=== PATIENT | male | born 1955 | race Caucasian/White ===

== ENCOUNTER 2018-01-15 22:28 | Inpatient (IN) | payer OTHER ==
[~2018-01-15] VITALS: Ht 182.9 cm; Wt 84.8 kg
[~2018-01-15 22:28] MED LIST: CIPROFLOXACIN500 M2 ORAL; FLOMAX0.4 MG ORAL; KEFLEX500 MG ORAL
[2018-01-15 22:49] VITALS: BP 133/83
--- NOTE | 2018-01-15 22:59 | Emergency Room Report ---
History of Present Illness General Chief Complaint: Multiple Trauma/Fall Source: Patient, Family Member Present Illness HPI Is a 62-year-old male with no cerumen past medical history. He presents with a left hip pain. He was walking down the stairs slipped and fell directly into his left hip. Since then has a hard time bearing weight. Pain to the left hip and thigh area. No loss of consciousness. No head trauma. Pain is 9 out of 10. Worse with movement and palpation. Allergies: Coded Allergies: No Known Allergies (Unverified , 11/21/13) Patient History Past Medical History: see triage record, old chart reviewed Past Surgical History: other Pertinent Family History: none Social History: Denies: smoking Immunizations: other Reviewed Nursing Documentation: PMH: Agreed; PSxH: Agreed Review of Systems Eye: Denies: eye pain, blurred vision ENT: Denies: ear pain, nose congestion, throat swelling Respiratory: Denies: cough, shortness of breath Cardiovascular: Denies: chest pain, palpitations Gastrointestinal: Denies: abdominal pain, diarrhea, nausea, vomiting Musculoskeletal: Reports: joint pain, muscle pain; Denies: back pain Skin: Denies: rash Neurological: Denies: headache, numbness Endocrine: Denies: increased thirst, increased urine Hematologic/Lymphatic: Denies: easy bruising All Other Systems: negative except mentioned in HPI Physical Exam Vital Signs Date Time Temp Pulse Resp B/P (MAP) Pulse Ox O2 Delivery O2 Flow Rate FiO2 01/15/18 22:31 98.3 85 18 124/72 95 Room Air 98.2 vitals normal Sp02 EP Interpretation: reviewed, normal General Appearance: well appearing, no apparent distress, alert Head: normocephalic, atraumatic Eyes: bilateral eye PERRL, bilateral eye EOMI ENT: hearing grossly normal, normal pharynx Neck: full range of motion, supple, no meningismus Respiratory: chest non-tender, lungs clear, normal breath sounds Cardiovascular #1: regular rate, rhythm, no murmur Gastrointestinal: normal bowel sounds, non tender, no mass, no organomegaly, no bruit, non-distended Musculoskeletal: back normal, tender - Over left hip/thigh. Psychiatric: mood/affect normal Skin: warm/dry Medical Decision Making Diagnostic Impression: Primary Impression: Fracture of femoral neck, left, closed Qualified Codes: S72.002A - Fracture of unspecified part of neck of left femur , initial encounter for closed fracture Additional Impression: UTI (urinary tract infection) Qualified Codes: N30.00 - Acute cystitis without hematuria ER Course Pt presents with a fall with a femoral neck fracture. We'll admit for orthopedic consult. I contacted Dr. Sparks for admission and Dr. Pabon for orthepedic consultation. Chest X-Ray Diagnostic Results Chest X-Ray Diagnostic Results : Chest X-Ray Ordered: Yes # of Views/Limited/Complete: 1 View Indication: Other - Pre Op EP Interpretation: Yes Interpretation: no consolidation, no effusion, no pneumothorax, no acute cardiopulmonary disease Impression: No acute disease Electronically Signed by: Carl Rosario MD Other X-Ray Diagnostic Results Other X-Ray Diagnostic Results : X-Ray ordered: Left hip xrays # of Views/Limited Vs Complete: 2 View Indication: Pain EP Interpretation: Yes Interpretation: no dislocation, no soft tissue swelling, other - femoral neck frx Impression: Other - femoral neck frx CT/MRI/US Diagnostic Results CT/MRI/US Diagnostic Results : Imaging Test Ordered: CT hip Impression Read by radiologist. Left subcapital frx of femur Last Vital Signs Date Time Temp Pulse Resp B/P (MAP) Pulse Ox O2 Delivery O2 Flow Rate FiO2 01/15/18 22:56 98.3 01/15/18 22:49 88 15 133/83 96 Room Air Status: improved Disposition: ADMITTED INPATIENT Condition: Serious CARL ROSARIO M.D. Jan 15, 2018 22:59
[2018-01-15] MEDS ORDERED: Norco 5mg/325mg tab ORAL ONE (23:00)
[2018-01-15] MEDS ORDERED: HYDROmorphone 1mg/ml Carpuject IVP ONE ×2 (23:15→23:30)
[2018-01-15 23:49] LABS: BASOPHILS % (AUTO) 1.2 % (0.0-2.0); EOSINOPHILS % (AUTO) 0.5 % (0.0-3.0); HEMATOCRIT 40.1 % (42.0-52.0); HEMOGLOBIN 14.2 G/DL (14.2-18.0); LYMPHOCYTES % (AUTO) 14.7 % (20.0-45.0); MEAN CORPUSCULAR VOLUME 88 FL (80-99); MONOCYTES % (AUTO) 7.9 % (1.0-10.0); NEUTROPHILS % (AUTO) 75.7 % (45.0-75.0); PLATELET COUNT 292 K/UL (150-450); RED BLOOD COUNT 4.56 M/UL (4.70-6.10); RED CELL DISTRIBUTION WIDTH 10.3 % (11.6-14.8); WHITE BLOOD COUNT 9.2 K/UL (4.8-10.8)
[2018-01-15 23:52] LABS: ANION GAP 7 mmol/L (5-15); BLOOD UREA NITROGEN 23 mg/dL (7-18); CALCIUM 9.6 MG/DL (8.5-10.1); CARBON DIOXIDE 28 MMOL/L (21-32); CHLORIDE 104 MMOL/L (98-107); CREATININE 1.2 MG/DL (0.55-1.30); POTASSIUM 4.1 MMOL/L (3.5-5.1); SODIUM 139 MMOL/L (136-145)
[2018-01-15 23:54] LABS: INR 0.9 (0.9-1.1)
[2018-01-16] VITALS (8 sets, daily range): BP systolic 107–161; BP diastolic 67–91
[2018-01-16 00:47] LABS: BILIRUBIN, URINE NEGATIVE (NEGATIVE); COLOR,URINE PALE YELLOW; GLUCOSE, URINE (UA) NEGATIVE (NEGATIVE); KETONES,URINE 1+ (NEGATIVE); LEUKOCYTE ESTERASE ,URINE 3+ (NEGATIVE); NITRITE,URINE NEGATIVE (NEGATIVE); PH,URINE 6 (4.5-8.0); PROTEIN,URINE 2+ (NEGATIVE); UROBILINOGEN,URINE NORMAL MG/DL (0.0-1.0)
[2018-01-16 00:49] LABS: APPEARANCE,URINE CLOUDY
[2018-01-16] MEDS ORDERED: cefTRIAXone 1 GM in NS 55 ML IVPB ONE (01:00)
[2018-01-16] MEDS ORDERED: Morphine Sulfate 2mg/ml Inj IVP PRN (01:45)
[2018-01-16] MEDS: D5 1/2NS 1,000 ML IV SCH ×2 (02:17→15:53)
[2018-01-16 08:39] LABS: BASOPHILS % (AUTO) 0.8 % (0.0-2.0); EOSINOPHILS % (AUTO) 0.9 % (0.0-3.0); HEMATOCRIT 37.1 % (42.0-52.0); HEMOGLOBIN 12.8 G/DL (14.2-18.0); LYMPHOCYTES % (AUTO) 19.2 % (20.0-45.0); MEAN CORPUSCULAR VOLUME 90 FL (80-99); MONOCYTES % (AUTO) 13.3 % (1.0-10.0); NEUTROPHILS % (AUTO) 65.9 % (45.0-75.0); PLATELET COUNT 232 K/UL (150-450); WHITE BLOOD COUNT 8.8 K/UL (4.8-10.8)
[2018-01-16 08:57] LABS: ANION GAP 8 mmol/L (5-15); BLOOD UREA NITROGEN 19 mg/dL (7-18); CALCIUM 8.6 MG/DL (8.5-10.1); CARBON DIOXIDE 27 MMOL/L (21-32); CHLORIDE 105 MMOL/L (98-107); POTASSIUM 3.8 MMOL/L (3.5-5.1); SODIUM 139 MMOL/L (136-145)
[2018-01-16] MEDS: Heparin 5000 units/ml inj SUBQ SCH ×2 (09:00→18:31)
[2018-01-16] MEDS ORDERED: D5 1/2NS 1000ml IV ONE (09:48)
--- NOTE | 2018-01-16 13:34 | Consultation ---
History of Present Illness General Date patient seen: Jan 16, 2018 Chief Complaint: Multiple Trauma/Fall Present Illness HPI 62 y/o M with hx BPH presents to ED On 01/15 with Lef hip pain after falling walking down stairs and landing on his left hip. No head trauma. Pain is 9/10 and worse with movement and palpation. ID is consulted for pyuria and concern for UTI. Afebrile, no leukocytosis. Allergies: Coded Allergies: No Known Allergies (Unverified , 11/21/13) Medication History Scheduled Cephalexin* (Keflex*), 500 MG ORAL TID Ciprofloxacin Hcl* (Ciprofloxacin Hcl*), 500 MG ORAL Q12H Tamsulosin HCl (Flomax), 0.4 MG ORAL DAILY, (Reported) Patient History Healthcare decision maker Resuscitation status Advanced Directive on File Patient History Narrative Pmhx: as above Shx: reviewed Fhx: non contributory Physical Exam Physical Exam Narrative General Appearance: well appearing, no apparent distress, alert Head: normocephalic, atraumatic Eyes: bilateral eye PERRL, bilateral eye EOMI ENT: hearing grossly normal, normal pharynx Neck: full range of motion, supple, no meningismus Respiratory: chest non-tender, lungs clear, normal breath sounds Cardiovascular : regular rate, rhythm, no murmur Gastrointestinal: normal bowel sounds, non tender, no mass, no organomegaly, no bruit, non-distended Musculoskeletal: back normal, tender - Over left hip/thigh. Skin: warm/dry Last 24 Hour Vital Signs Date Time Temp Pulse Resp B/P (MAP) Pulse Ox O2 Delivery O2 Flow Rate FiO2 01/16/18 12:00 98.6 65 18 161/91 (114) 97 98.6 01/16/18 09:00 Room Air 01/16/18 08:00 97.7 62 18 125/77 (93) 96 97.7 01/16/18 04:27 98.1 57 18 112/68 (83) 97 98.1 01/16/18 02:11 Room Air 01/16/18 01:45 98.1 81 18 115/70 (85) 96 98.1 01/16/18 01:21 98.3 88 15 133/83 96 Room Air 98.3 01/16/18 01:21 71 16 107/67 100 Room Air 01/16/18 00:09 98.3 01/16/18 00:08 98.3 01/16/18 00:08 98.3 01/15/18 23:35 98.3 01/15/18 23:14 98.3 01/15/18 22:56 98.3 01/15/18 22:49 88 15 133/83 96 Room Air 01/15/18 22:31 98.3 85 18 124/72 95 Room Air 98.2 Intake and Output 01/15/18 01/16/18 19:00 07:00 Intake Total 1240 ml Output Total 650 ml Balance 590 ml Intake IV Total 1240 ml Output Urine Total 650 ml # Voids 3 Laboratory Tests Test 01/15/18 23:00 01/16/18 07:50 White Blood Count 9.2 K/UL (4.8-10.8) 8.8 K/UL (4.8-10.8) Red Blood Count 4.56 M/UL (4.70-6.10) L 4.10 M/UL (4.70-6.10) L Hemoglobin 14.2 G/DL (14.2-18.0) 12.8 G/DL (14.2-18.0) L Hematocrit 40.1 % (42.0-52.0) L 37.1 % (42.0-52.0) L Mean Corpuscular Volume 88 FL (80-99) 90 FL (80-99) Mean Corpuscular Hemoglobin 31.2 PG (27.0-31.0) H 31.2 PG (27.0-31.0) H Mean Corpuscular Hemoglobin Concent 35.6 G/DL (32.0-36.0) 34.5 G/DL (32.0-36.0) Red Cell Distribution Width 10.3 % (11.6-14.8) L 11.0 % (11.6-14.8) L Platelet Count 292 K/UL (150-450) 232 K/UL (150-450) Mean Platelet Volume 6.2 FL (6.5-10.1) L 6.2 FL (6.5-10.1) L Neutrophils (%) (Auto) 75.7 % (45.0-75.0) H 65.9 % (45.0-75.0) Lymphocytes (%) (Auto) 14.7 % (20.0-45.0) L 19.2 % (20.0-45.0) L Monocytes (%) (Auto) 7.9 % (1.0-10.0) 13.3 % (1.0-10.0) H Eosinophils (%) (Auto) 0.5 % (0.0-3.0) 0.9 % (0.0-3.0) Basophils (%) (Auto) 1.2 % (0.0-2.0) 0.8 % (0.0-2.0) Prothrombin Time 9.9 SEC (9.30-11.50) 10.2 SEC (9.30-11.50) Prothromb Time International Ratio 0.9 (0.9-1.1) 1.0 (0.9-1.1) Activated Partial Thromboplast Time 23 SEC (23-33) 24 SEC (23-33) Sodium Level 139 MMOL/L (136-145) 139 MMOL/L (136-145) Potassium Level 4.1 MMOL/L (3.5-5.1) 3.8 MMOL/L (3.5-5.1) Chloride Level 104 MMOL/L (98-107) 105 MMOL/L (98-107) Carbon Dioxide Level 28 MMOL/L (21-32) 27 MMOL/L (21-32) Anion Gap 7 mmol/L (5-15) 8 mmol/L (5-15) Blood Urea Nitrogen 23 mg/dL (7-18) H 19 mg/dL (7-18) H Creatinine 1.2 MG/DL (0.55-1.30) 1.0 MG/DL (0.55-1.30) Estimat Glomerular Filtration Rate > 60 mL/min (>60) > 60 mL/min (>60) Glucose Level 117 MG/DL (74-106) H 94 MG/DL (74-106) Calcium Level 9.6 MG/DL (8.5-10.1) 8.6 MG/DL (8.5-10.1) Height (Feet): 6 Height (Inches): 0.00 Weight (Pounds): 176 Medications Current Medications Medications (Trade) Dose Ordered Sig/Aubrey Route PRN Reason Start Time Stop Time Status Last Admin Dose Admin Dextrose/Sodium Chloride 1,000 ml @ 60 mls/hr [id number] IV 01/16/18 01:45 02/15/18 01:44 01/16/18 02:17 Heparin Sodium (Porcine) (Heparin 5000 units/ml) 5,000 units BID SUBQ 01/16/18 09:00 02/15/18 08:59 Morphine Sulfate (Morphine Sulfate) 2 mg Q4H PRN IVP For Pain 01/16/18 01:45 01/23/18 01:44 Assessment/Plan Assessment/Plan Abx: Ceftriaxone x1 01/16 Assessment: Left hip s/p fall- r/o fracture Afebrile, no leukocytosis UTI (dysuria)- r/o obstruction/stone -u/a wbc Tnct, nit neg, leuk +3; ucx p -recurrent UTI- 3 courses of Cipro x10 d since August; last one was recently and urine cx grew P.mirabilis per patient L ankle lateral malleolus swelling/pain- r/o fracture BPH Plan: -Start empiric CEfepime pending urine culture -Renal US -Xray L ankle -f/u cx -Monitor CBC/CMP, temperatures -f/u Xray and CT L hip -aspiration precautions -pain control Thank you for this consultation. Will continue to follow along with you. Discussed with OSEAS. Alyssa Braun M.D. Jan 16, 2018 13:34
--- NOTE | 2018-01-16 14:30 | History and Physical Report ---
DATE OF ADMISSION: 01/15/2018 TIME: 11 a.m. CONSULTANTS: 1. Tanvi Lemus M.D. 2. Yon Davis M.D. 3. Sergey Pabon M.D. CHIEF COMPLAINT: Left hip fracture. BRIEF HISTORY: This is a 62-year-old male, who lives at home, apparently tripped and fell over his left hip, sustaining a lot of pain, came to [place], diagnosed with left hip fracture and admitted to medical floor for further treatment. Currently, calm in bed, feeling better with pain medications. No complaints, otherwise. REVIEW OF SYSTEMS: No chest pain. No shortness of breath. No nausea, vomiting, or diarrhea. PAST MEDICAL HISTORY: BPH. PAST SURGICAL HISTORY: Prostate surgery. MEDICATIONS: Include heparin, morphine, ceftriaxone, hydromorphone, and Zofran. ALLERGIES: Denies. SOCIAL HISTORY: No smoking. No alcohol. No intravenous drug abuse. FAMILY HISTORY: Noncontributory. PHYSICAL EXAMINATION: GENERAL: Calm in bed, oriented x3, in no acute distress. VITAL SIGNS: Temperature 97, pulse 62, respirations 18, and blood pressure 125/77. CARDIOVASCULAR: No murmur. LUNGS: Distant and clear. ABDOMEN: Bowel sounds positive. Soft, nontender, and nondistended. EXTREMITIES: Showed no cyanosis, clubbing, or edema. NEUROLOGIC: The patient moves all extremities, slightly weak bilaterally. Slightly tender left hip. LABORATORY DATA: Laboratories at this time show hemoglobin 12.8, otherwise CBC is normal. BMP shows BUN 19, otherwise BMP is normal. INR is 1.0. Urinalysis show 3+ leukocyte esterase. ASSESSMENT: 1. Left hip fracture. 2. BPH. 3. UTI. PLAN: 1. Continue premeds. 2. Pain control. 3. Dietary followup. 4. Orthopedics followup. 5. Cardiology to clear the patient for possible surgery. 6. Antibiotics per Infectious Disease Dr. Pérez. 7. We will continue to follow this patient medically. 8. CBC and BMP in the morning. Mo Sparks D.O. DR: MARIA LUISA JOB#: [id number] CC:
[2018-01-16] MEDS: Cefepime HCl 1 GM in D5W 55 ML IVPB SCH (16:38)
--- NOTE | 2018-01-16 17:36 | Cardiology Progress Note ---
Assessment/Plan Assessment/Plan The patient is seen and examined, full consult note will be dictated. Objective Last 24 Hour Vital Signs Date Time Temp Pulse Resp B/P (MAP) Pulse Ox O2 Delivery O2 Flow Rate FiO2 01/16/18 15:46 97.7 62 18 133/86 (102) 98 97.7 01/16/18 13:32 70 130/87 (101) 01/16/18 12:00 98.6 65 18 161/91 (114) 97 98.6 01/16/18 09:00 Room Air 01/16/18 08:00 97.7 62 18 125/77 (93) 96 97.7 01/16/18 04:27 98.1 57 18 112/68 (83) 97 98.1 01/16/18 02:11 Room Air 01/16/18 01:45 98.1 81 18 115/70 (85) 96 98.1 01/16/18 01:21 98.3 88 15 133/83 96 Room Air 98.3 01/16/18 01:21 71 16 107/67 100 Room Air 01/16/18 00:09 98.3 01/16/18 00:08 98.3 01/16/18 00:08 98.3 01/15/18 23:35 98.3 01/15/18 23:14 98.3 01/15/18 22:56 98.3 01/15/18 22:49 88 15 133/83 96 Room Air 01/15/18 22:31 98.3 85 18 124/72 95 Room Air 98.2 Intake and Output 01/15/18 01/16/18 19:00 07:00 Intake Total 1240 ml Output Total 650 ml Balance 590 ml Intake IV Total 1240 ml Output Urine Total 650 ml # Voids 3 Laboratory Tests Test 01/15/18 23:00 01/16/18 07:50 White Blood Count 9.2 K/UL (4.8-10.8) 8.8 K/UL (4.8-10.8) Red Blood Count 4.56 M/UL (4.70-6.10) L 4.10 M/UL (4.70-6.10) L Hemoglobin 14.2 G/DL (14.2-18.0) 12.8 G/DL (14.2-18.0) L Hematocrit 40.1 % (42.0-52.0) L 37.1 % (42.0-52.0) L Mean Corpuscular Volume 88 FL (80-99) 90 FL (80-99) Mean Corpuscular Hemoglobin 31.2 PG (27.0-31.0) H 31.2 PG (27.0-31.0) H Mean Corpuscular Hemoglobin Concent 35.6 G/DL (32.0-36.0) 34.5 G/DL (32.0-36.0) Red Cell Distribution Width 10.3 % (11.6-14.8) L 11.0 % (11.6-14.8) L Platelet Count 292 K/UL (150-450) 232 K/UL (150-450) Mean Platelet Volume 6.2 FL (6.5-10.1) L 6.2 FL (6.5-10.1) L Neutrophils (%) (Auto) 75.7 % (45.0-75.0) H 65.9 % (45.0-75.0) Lymphocytes (%) (Auto) 14.7 % (20.0-45.0) L 19.2 % (20.0-45.0) L Monocytes (%) (Auto) 7.9 % (1.0-10.0) 13.3 % (1.0-10.0) H Eosinophils (%) (Auto) 0.5 % (0.0-3.0) 0.9 % (0.0-3.0) Basophils (%) (Auto) 1.2 % (0.0-2.0) 0.8 % (0.0-2.0) Prothrombin Time 9.9 SEC (9.30-11.50) 10.2 SEC (9.30-11.50) Prothromb Time International Ratio 0.9 (0.9-1.1) 1.0 (0.9-1.1) Activated Partial Thromboplast Time 23 SEC (23-33) 24 SEC (23-33) Sodium Level 139 MMOL/L (136-145) 139 MMOL/L (136-145) Potassium Level 4.1 MMOL/L (3.5-5.1) 3.8 MMOL/L (3.5-5.1) Chloride Level 104 MMOL/L (98-107) 105 MMOL/L (98-107) Carbon Dioxide Level 28 MMOL/L (21-32) 27 MMOL/L (21-32) Anion Gap 7 mmol/L (5-15) 8 mmol/L (5-15) Blood Urea Nitrogen 23 mg/dL (7-18) H 19 mg/dL (7-18) H Creatinine 1.2 MG/DL (0.55-1.30) 1.0 MG/DL (0.55-1.30) Estimat Glomerular Filtration Rate > 60 mL/min (>60) > 60 mL/min (>60) Glucose Level 117 MG/DL (74-106) H 94 MG/DL (74-106) Calcium Level 9.6 MG/DL (8.5-10.1) 8.6 MG/DL (8.5-10.1) Yon Davis MD Jan 16, 2018 17:36
[2018-01-16] MEDS: Norco 5mg/325mg tab ORAL PRN (18:56)
[2018-01-17] VITALS (13 sets, daily range): BP systolic 113–147; BP diastolic 74–99
[2018-01-17] MEDS: Morphine Sulfate 2mg/ml Inj IVP PRN (00:07)
[2018-01-17] MEDS: D5 1/2NS 1,000 ML IV SCH ×2 (06:38→06:41)
[2018-01-17 07:18] LABS: BASOPHILS % (AUTO) 0.6 % (0.0-2.0); EOSINOPHILS % (AUTO) 0.1 % (0.0-3.0); HEMATOCRIT 37.6 % (42.0-52.0); HEMOGLOBIN 13.4 G/DL (14.2-18.0); MEAN CORPUSCULAR VOLUME 88 FL (80-99); MONOCYTES % (AUTO) 11.2 % (1.0-10.0); NEUTROPHILS % (AUTO) 77.1 % (45.0-75.0); PLATELET COUNT 227 K/UL (150-450); RED BLOOD COUNT 4.28 M/UL (4.70-6.10); RED CELL DISTRIBUTION WIDTH 10.4 % (11.6-14.8); WHITE BLOOD COUNT 9.3 K/UL (4.8-10.8)
[2018-01-17 07:33] LABS: ANION GAP 5 mmol/L (5-15); BLOOD UREA NITROGEN 10 mg/dL (7-18); CALCIUM 8.9 MG/DL (8.5-10.1); CARBON DIOXIDE 29 MMOL/L (21-32); CHLORIDE 104 MMOL/L (98-107); CREATININE 0.9 MG/DL (0.55-1.30); SODIUM 138 MMOL/L (136-145)
[2018-01-17] MEDS: Heparin 5000 units/ml inj SUBQ SCH ×2 (08:48→17:40)
[2018-01-17] MEDS: Cefepime HCl 1 GM in D5W 55 ML IVPB SCH ×2 (08:52→20:18)
--- NOTE | 2018-01-17 09:16 | Diagnostic Imaging Report ---
Indication: Severe pain in left hip after falling on stairs approximately 2 hours ago Technique: 2 views of the left hip Comparison: none Findings: There is a minimally displaced fracture of the femoral neck. This appears to be comminuted. No dislocations. The joint spaces are preserved Impression: Positive for left femoral neck fracture
--- NOTE | 2018-01-17 09:27 | Diagnostic Imaging Report ---
Indication: Pain in left hip after falling down stairs Technique: No oral or IV contrast, per trauma protocol Spiral acquisitions obtained through the Multiplanar reconstructions were generated. Total dose length prod 448 mGycm. CTDIvol(s) 11 mGy. Radiation dose was minimized using automated exposure control Comparison: Plain radiographs performed one hour earlier Findings: There is a minimally displaced fracture of the left femoral head neck junction. This is comminuted, with slight posterior angulation. No associated pelvic fracture demonstrated. No evidence of significant hip contusion or hematoma. Included pelvic viscera are remarkable for the presence of a calculus within the bladder lumen which measures 9 mm in diameter. Impression: Positive for left femoral subcapital fracture Incidental finding of a 9 mm bladder calculus. This finding was not reported on the [facility] preliminary report; Dr. Sparks notified at the time of interpretation The CT scanner at [facility] is accredited by the [employer] and the scans are performed using protocols designed to limit radiation exposure to as low as reasonably achievable to attain images of sufficient resolution adequate for diagnostic evaluation.
--- NOTE | 2018-01-17 10:11 | Infectious Diseases Prog Note ---
Assessment/Plan Assessment/Plan Abx: Ceftriaxone x1 01/16 Assessment: Left hip s/p fall- with Fx Afebrile, no leukocytosis UTI (dysuria)- r/o obstruction/stone -u/a wbc Tnct, nit neg, leuk +3; ucx GNR -recurrent UTI- 3 courses of Cipro x10 d since August; last one was recently and urine cx grew P.mirabilis per patient L ankle lateral malleolus swelling/pain- r/o fracture BPH Plan: -Continue Cefepime #2 pending urine culture -f/u cx -Monitor CBC/CMP, temperatures -f/u Xray -aspiration precautions -pain control Thank you for this consult we will continue to follow the patient with you. Subjective Allergies: Coded Allergies: No Known Allergies (Unverified , 11/21/13) Subjective Patient remains afebrile Pain controlled Objective Vital Signs Last 24 Hour Vital Signs Date Time Temp Pulse Resp B/P (MAP) Pulse Ox O2 Delivery O2 Flow Rate FiO2 01/17/18 08:00 97.3 69 20 147/80 (102) 98 97.3 01/17/18 04:00 98.2 58 20 116/77 (90) 98 98.2 01/17/18 00:00 98.8 60 20 138/99 (112) 98 98.8 01/16/18 21:00 Room Air 01/16/18 20:00 99.3 69 20 149/91 (110) 98 99.3 01/16/18 15:46 97.7 62 18 133/86 (102) 98 97.7 01/16/18 13:32 70 130/87 (101) 01/16/18 12:00 98.6 65 18 161/91 (114) 97 98.6 Height (Feet): 6 Height (Inches): 0.00 Weight (Pounds): 176 Objective General Appearance: NAD, Alert Head: normocephalic, atraumatic, MMM, EOMI Respiratory: chest non-tender, lungs clear, normal breath sounds Cardiovascular : regular rate, rhythm, no murmur Gastrointestinal: normal bowel sounds, non tender, no mass, no organomegaly, no bruit, non-distended Musculoskeletal: back normal, tender - Over left hip/thigh. Microbiology Date/Time Source Procedure Growth Status 01/15/18 00:02 Urine,Clean Catch Urine Culture - Preliminary Gram Negative Bacillus 1 Resulted Laboratory Tests Test 01/17/18 06:35 White Blood Count 9.3 K/UL (4.8-10.8) Red Blood Count 4.28 M/UL (4.70-6.10) L Hemoglobin 13.4 G/DL (14.2-18.0) L Hematocrit 37.6 % (42.0-52.0) L Mean Corpuscular Volume 88 FL (80-99) Mean Corpuscular Hemoglobin 31.3 PG (27.0-31.0) H Mean Corpuscular Hemoglobin Concent 35.6 G/DL (32.0-36.0) Red Cell Distribution Width 10.4 % (11.6-14.8) L Platelet Count 227 K/UL (150-450) Mean Platelet Volume 5.9 FL (6.5-10.1) L Neutrophils (%) (Auto) 77.1 % (45.0-75.0) H Lymphocytes (%) (Auto) 11.0 % (20.0-45.0) L Monocytes (%) (Auto) 11.2 % (1.0-10.0) H Eosinophils (%) (Auto) 0.1 % (0.0-3.0) Basophils (%) (Auto) 0.6 % (0.0-2.0) Sodium Level 138 MMOL/L (136-145) Potassium Level 4.0 MMOL/L (3.5-5.1) Chloride Level 104 MMOL/L (98-107) Carbon Dioxide Level 29 MMOL/L (21-32) Anion Gap 5 mmol/L (5-15) Blood Urea Nitrogen 10 mg/dL (7-18) Creatinine 0.9 MG/DL (0.55-1.30) Estimat Glomerular Filtration Rate > 60 mL/min (>60) Glucose Level 135 MG/DL (74-106) H Calcium Level 8.9 MG/DL (8.5-10.1) Prostate Specific Antigen 16.36 ng/mL (0.13-4.0) H Free Prostate Specific Antigen Pending Percent Free Prostate Specific Ag Pending Prostate Specific Antigen Total Pending Current Medications Medications (Trade) Dose Ordered Sig/Aubrey Route PRN Reason Start Time Stop Time Status Last Admin Dose Admin Acetaminophen/ Hydrocodone Bitart ([place] 5/325) 1 tab Q6H PRN ORAL Moderate Pain (Pain Scale 4-6) 01/16/18 18:45 01/23/18 18:44 01/16/18 18:56 Cefepime HCl 1 gm/ Dextrose 55 ml @ 110 mls/hr EVERY 12 HOURS IVPB 01/16/18 16:30 01/23/18 16:29 01/17/18 08:52 Dextrose/Sodium Chloride 1,000 ml @ 60 mls/hr [id number] IV 01/16/18 01:45 02/15/18 01:44 01/17/18 06:41 Heparin Sodium (Porcine) (Heparin 5000 units/ml) 5,000 units BID SUBQ 01/16/18 09:00 02/15/18 08:59 01/16/18 18:31 Morphine Sulfate (Morphine Sulfate) 2 mg Q4H PRN IVP Severe Pain (Pain Scale 7-10) 01/16/18 19:00 01/23/18 01:44 01/17/18 00:07 Buck Chinchilla MD Jan 17, 2018 10:11
[2018-01-17] MEDS: Norco 5mg/325mg tab ORAL PRN (10:23)
--- NOTE | 2018-01-17 12:04 | Diagnostic Imaging Report ---
Indication: Severe ankle pain and swelling Technique: 2 views of the left ankle. Per technologist, patient unable to tolerate additional views Comparison: none Findings: There is minimal soft tissue swelling over the lateral malleolus. On AP view, small ossific density projects lateral to the calcaneus. The medial border of this is somewhat irregular. No evidence of acute tibial, fibular, or talar fracture. The joint spaces are preserved. No dislocations Impression: . Small ossific density lateral to the calcaneus on the AP view, probably an accessory ossicle, but irregular medial border indicates that this could represent an avulsion fracture fragment. Correlate with clinical findings No acute bony trauma otherwise
--- NOTE | 2018-01-17 12:13 | Diagnostic Imaging Report ---
Indication: Cough Technique: One view of the chest Comparison: none Findings: Lungs and pleural spaces are clear. Heart size is normal. Azygos lobe and fissure are noted-normal anatomic variant Impression: No acute process
[2018-01-17] MEDS ORDERED: Morphine Sulfate 2mg/ml Inj IVP SCH (12:15)
--- NOTE | 2018-01-17 12:34 | General Progress Note ---
Assessment/Plan Problem List: (1) UTI (urinary tract infection) ICD Codes: N39.0 - Urinary tract infection, site not specified SNOMED: 80660763 (2) Fracture of left hip ICD Codes: S72.002A - Fracture of unspecified part of neck of left femur, initial encounter for closed fracture SNOMED: 147996346 (3) BPH with obstruction/lower urinary tract symptoms ICD Codes: N40.1 - Enlarged prostate with lower urinary tract symptoms SNOMED: 560561129 Status: unchanged Assessment/Plan abx pain control pending sx cbc bmp am Subjective Constitutional: Reports: weakness Allergies: Coded Allergies: No Known Allergies (Unverified , 11/21/13) All Systems: reviewed and negative except above Subjective sl gen pain Objective Last 24 Hour Vital Signs Date Time Temp Pulse Resp B/P (MAP) Pulse Ox O2 Delivery O2 Flow Rate FiO2 01/17/18 12:23 98.4 01/17/18 12:00 98.4 65 20 133/90 (104) 97 98.4 01/17/18 11:22 97.3 01/17/18 10:23 97.3 01/17/18 09:00 Room Air 01/17/18 08:00 97.3 69 20 147/80 (102) 98 97.3 01/17/18 04:00 98.2 58 20 116/77 (90) 98 98.2 01/17/18 00:00 98.8 60 20 138/99 (112) 98 98.8 01/16/18 21:00 Room Air 01/16/18 20:00 99.3 69 20 149/91 (110) 98 99.3 01/16/18 15:46 97.7 62 18 133/86 (102) 98 97.7 01/16/18 13:32 70 130/87 (101) Intake and Output 01/16/18 01/17/18 19:00 07:00 Intake Total 1135 ml 720 ml Output Total 600 ml 800 ml Balance 535 ml -80 ml Intake Oral 480 ml IV Total 655 ml 720 ml Output Urine Total 600 ml 800 ml Laboratory Tests 01/17/18 06:35: White Blood Count 9.3, Red Blood Count 4.28L, Hemoglobin 13.4L, Hematocrit 37.6L , Mean Corpuscular Volume 88, Mean Corpuscular Hemoglobin 31.3H, Mean Corpuscular Hemoglobin Concent 35.6, Red Cell Distribution Width 10.4L, Platelet Count 227, Mean Platelet Volume 5.9L, Neutrophils (%) (Auto) 77.1H, Lymphocytes (%) (Auto) 11.0L, Monocytes (%) (Auto) 11.2H, Eosinophils (%) (Auto ) 0.1, Basophils (%) (Auto) 0.6, Sodium Level 138, Potassium Level 4.0, Chloride Level 104, Carbon Dioxide Level 29, Anion Gap 5, Blood Urea Nitrogen 10 , Creatinine 0.9, Estimat Glomerular Filtration Rate > 60, Glucose Level 135H, Calcium Level 8.9, Prostate Specific Antigen 16.36H, Free Prostate Specific Antigen [Pending], Percent Free Prostate Specific Ag [Pending], Prostate Specific Antigen Total [Pending] Height (Feet): 6 Height (Inches): 0.00 Weight (Pounds): 176 General Appearance: lethargic EENT: normal ENT inspection Neck: normal alignment Cardiovascular: normal peripheral pulses, normal rate, regular rhythm Respiratory/Chest: chest wall non-tender, lungs clear, normal breath sounds Abdomen: normal bowel sounds, non tender, soft Extremities: normal inspection Edema: no edema noted Arm (L), no edema noted Arm (R), no edema noted Leg (L), no edema noted Leg (R), no edema noted Pedal (L), no edema noted Pedal (R), no edema noted Generalized Neurologic: motor weakness Skin: normal pigmentation, warm/dry Mo Sparks DO Jan 17, 2018 12:34
--- NOTE | 2018-01-17 15:16 | Diagnostic Imaging Report ---
Indication: Abnormal renal function tests Technique: Grayscale and duplex images of the kidneys, retroperitoneum, and bladder were obtained. Comparison: none Findings: Right kidney measures 11 cm in length. Left kidney measures 11.6 cm in length. Both kidneys demonstrate normal echogenicity. No hydronephrosis. 15 mm cyst is seen in the upper pole of the left kidney. Echogenic foci in the bilateral renal sinuses are probably artifactual but could represent small nonobstructive calculi.. Normal inferior vena cava. Bladder demonstrates a 11 mm intraluminal stone, also described on recent CT scan. Prevoid bladder volume 360 mL, postvoid bladder volume 162 mL. The prostate is enlarged, volume 93 mL. There is a TURP defect noted Impression: Negative for hydronephrosis Small bilateral renal sinus nonobstructive calculi versus artifact Postvoid bladder volume 162 mL Prostatomegaly. Evidence of prior TURP-correlate with surgical history Incidental finding of left upper pole renal cyst .
[2018-01-17] MEDS ORDERED: Duramorph PF 5mg/10ml amp ONE (16:35)
[2018-01-17] MEDS ORDERED: Bupivacaine 0.5% Inj 30 ml vial INJ ONE (16:36)
[2018-01-17] MEDS ORDERED: Bacitracin 50000 Units Vial ONE (16:36)
[2018-01-17] MEDS ORDERED: NeoSporin Gu Irrig 1ml Amp IRRIG ONE (16:36)
[2018-01-17] MEDS ORDERED: fentaNYL 100 mcg/2 mL IV ONE (16:50)
[2018-01-17] MEDS ORDERED: Midazolam 2mg/2ml Inj ONE (16:50)
[2018-01-17] MEDS ORDERED: Propofol 200mg/20ml IV ONE (16:55)
--- NOTE | 2018-01-17 17:12 | Operative Note - PDOC ---
Operative Note Operative Note Pre-op Diagnosis: left femoral neck fracture Procedure: see op report Post-op Diagnosis: same as pre-op plus Operative Findings: consistent w/pre-op dx studies Anesthesia: regional Specimen: none Complications: none Condition: stable Estimated Blood Loss: none Implant(s) used?: Yes Sergey Pabon MD Jan 17, 2018 17:12
--- NOTE | 2018-01-17 17:12 | Pre-Procedure Note/Attestation ---
Pre-Procedure Note/Attestation Complete Prior to Procedure Planned Procedure: left Procedure Narrative: crpp left femoral neck fracture Indications for Procedure Pre-Operative Diagnosis: left femoral neck fracture Attestation I attest that I discussed the nature of the procedure; its benefits; risks and complications; and alternatives (and the risks and benefits of such alternatives ), prior to the procedure, with the patient (or the patient's legal financial service representative). I attest that, if there was a reasonable possibility of needing a blood transfusion, the patient (or the patient's legal financial service representative) was given the [facility] standardized written summary, pursuant to the Damon Maida Blood Safety Act ([place] Health and Safety Code # 1645, as amended). I attest that I re-evaluated the patient just prior to the surgery and that there has been no change in the patient's H&P, except as documented below: Sergey Pabon MD Jan 17, 2018 17:12
--- NOTE | 2018-01-17 17:26 | Cardiology Report ---
APPROVED REPORT EKG Measurement Heart [id number] Normal sinus rhythm Normal ECG
[2018-01-17] MEDS: D5 1/2NS w/KCl 20mEq 1,000 ML IV SCH ×2 (17:51→21:04)
[2018-01-17] MEDS ORDERED: LR 1000ml 1,000 ML IVLG SCH (18:27)
--- NOTE | 2018-01-17 18:27 | Anethesia Preoperative Eval ---
Anesthesia Pre-op PMH/ROS General Date of Evaluation: Jan 17, 2018 Time of Evaluation: 17:02 Anesthesiologist: Jovita ASA Score: ASA 2 Mallampati Score Class I : Soft palate, uvula, fauces, pillars visible Class II: Soft palate, uvula, fauces visible Class III: Soft palate, base of uvula visible Class IV: Only hard plate visible Mallampati Classification: Class II Surgeon: Cm Diagnosis: L femoral neck Fx Surgical Procedure: Percutaneous pinningh of L fem. neck Fx Anesthesia History: none Family History: no anesthesia problems Allergies: Coded Allergies: No Known Allergies (Unverified , 11/21/13) Medications: see eMAR Past Medical History Cardiovascular: Denies: HTN, CAD, [place], valve dz, arrhythmia, other Pulmonary: Denies: asthma, COPD, EDINSON, other Gastrointestinal/Genitourinary: Reports: GERD - mild, other - BPH recurrent UTI Bladder stone Neurologic/Psychiatric: Denies: dementia, CVA, depression/anxiety, TIA, other Endocrine: Denies: DM, hypothyroidism, steroids, other HEENT: Denies: cataract (L), cataract (R), glaucoma, KASAAN (L), KASAAN (R), other Hematology/Immune: Denies: anemia, DVT, bleeding disorder, other Musculoskeletal/Integumentary: Denies: OA, RA, DJD, DDD, edema, other PMH Narrative: Mechanical fall PSxH Narrative: Appendectomy, TUPR Anesthesia Pre-op Phys. Exam Physician Exam Last Vital Signs Date Time Temp Pulse Resp B/P (MAP) Pulse Ox O2 Delivery O2 Flow Rate FiO2 01/17/18 16:00 98.2 65 20 125/81 (96) 100 98.2 01/17/18 09:00 Room Air Constitutional: NAD Neurologic: CN 2-12 intact Cardiovascular: RRR Respiratory: CTA Gastrointestinal: S/NT/ND Airway Exam Mallampati Score: Class II MO: full Neck: Flexible ROM: full Teeth: intact Dentures: no upper, no lower Anesthesia Pre-op A/P Labs Hematology Test 01/17/18 06:35 White Blood Count 9.3 K/UL (4.8-10.8) Red Blood Count 4.28 M/UL (4.70-6.10) L Hemoglobin 13.4 G/DL (14.2-18.0) L Hematocrit 37.6 % (42.0-52.0) L Mean Corpuscular Volume 88 FL (80-99) Mean Corpuscular Hemoglobin 31.3 PG (27.0-31.0) H Mean Corpuscular Hemoglobin Concent 35.6 G/DL (32.0-36.0) Red Cell Distribution Width 10.4 % (11.6-14.8) L Platelet Count 227 K/UL (150-450) Mean Platelet Volume 5.9 FL (6.5-10.1) L Neutrophils (%) (Auto) 77.1 % (45.0-75.0) H Lymphocytes (%) (Auto) 11.0 % (20.0-45.0) L Monocytes (%) (Auto) 11.2 % (1.0-10.0) H Eosinophils (%) (Auto) 0.1 % (0.0-3.0) Basophils (%) (Auto) 0.6 % (0.0-2.0) Chemistry Test 01/17/18 06:35 Sodium Level 138 MMOL/L (136-145) Potassium Level 4.0 MMOL/L (3.5-5.1) Chloride Level 104 MMOL/L (98-107) Carbon Dioxide Level 29 MMOL/L (21-32) Anion Gap 5 mmol/L (5-15) Blood Urea Nitrogen 10 mg/dL (7-18) Creatinine 0.9 MG/DL (0.55-1.30) Estimat Glomerular Filtration Rate > 60 mL/min (>60) Glucose Level 135 MG/DL (74-106) H Calcium Level 8.9 MG/DL (8.5-10.1) Prostate Specific Antigen 16.36 ng/mL (0.13-4.0) H Free Prostate Specific Antigen Pending Percent Free Prostate Specific Ag Pending Prostate Specific Antigen Total Pending Studies Pre-op Studies: EKG - NSR Risk Assessment & Plan Assessment: ASA 2 Plan: SAB vs GA Status Change Before Surgery: No Pre-Antibiotics Drug: Ancef 2 gr. Given Within 1 Hr of Incision: Yes Time Given: 17:50 Herbie Hussein MD Jan 17, 2018 18:27
[2018-01-17] MEDS ORDERED: DiphenhydrAMINE 50mg/ml Inj IVP PRN (18:30)
[2018-01-17] MEDS ORDERED: Ketorolac 30mg Inj IV PRN (18:30)
[2018-01-17] MEDS ORDERED: fentaNYL 100 mcg/2 mL IV PRN (18:30)
--- NOTE | 2018-01-17 18:52 | Immediate Post-Op Evaluation ---
Immediate Post-Op Evalulation Immediate Post-Op Evalulation Procedure: Percutaneous pinning of L femoral neck Fx. Date of Evaluation: Jan 17, 2018 Time of Evaluation: 18:50 IV Fluids: 800 Blood Products: none Estimated Blood Loss: min Urinary Output: 100 Blood Pressure Systolic: 121 Blood Pressure Diastolic: 77 Pulse Rate: 56 Respiratory Rate: 20 O2 Sat by Pulse Oximetry: 99 Temperature (Fahrenheit): 98.8 Pain Score (1-10): 1 Nausea: No Vomiting: No Complications none Patient Status: awake, patent, none Hydration Status: adequate Herbie Hussein MD Jan 17, 2018 18:52
--- NOTE | 2018-01-17 19:15 | Consultation ---
DATE OF CONSULTATION: 01/16/2018 ORTHOPEDIC CONSULTATION CONSULTING PHYSICIAN: Sergey Pabon M.D. CHIEF COMPLAINT: Left hip pain. HISTORY OF PRESENT ILLNESS: The patient is a pleasant 62-year-old gentleman, who slipped down flight of stairs. He has pain in the left hip, had difficulty weightbearing, brought to the ER, was diagnosed of left femoral neck fracture. Orthopedic consultation was obtained for further care and recommendation. PAST MEDICAL HISTORY: None listed. MEDICATIONS: Reviewed from the intake chart. ALLERGIES: None. SOCIAL HISTORY: The patient is a nonsmoker. FAMILY HISTORY: Noncontributory. PHYSICAL EXAMINATION: GENERAL: The patient is alert and oriented, resting comfortably in the exam bed. VITAL SIGNS: Afebrile. Stable vital signs. EXTREMITIES: Left hip examination shows pain with internal and external rotation. Positive heel strike. Posterior calf is soft. Neurovascular is normal. IMAGING STUDIES: Showed nondisplaced femoral neck fracture with well-maintained joint. ASSESSMENT: Left femoral neck fracture. DISCUSSION: At this point, I recommend to proceed with closed reduction and percutaneous pinning of left hip. We will try to make sure the patient is optimized from medical for surgery on Tuesday. He will be n.p.o. after breakfast in anticipation of with this patient surgery on Tuesday pending medical clearance. Alternatives, nonoperative as well as total hip replacement discussed with the patient. Possible avascular necrosis, failure of hardware, need for future surgery including total hip replacement discussed with the patient. All questions addressed. Sergey Pabon M.D. DR: Mj JOB#: [id number] CC:
--- NOTE | 2018-01-17 19:45 | Consultation ---
DATE OF CONSULTATION: 01/16/2018 CARDIOLOGY CONSULTATION CONSULTING PHYSICIAN: Yon Davis M.D. REFERRING PHYSICIAN: Mo Sparks D.O. REASON FOR CONSULTATION: A preoperative cardiac clearance for possible noncardiac surgery. HISTORY OF PRESENT ILLNESS: The patient is a very unfortunate 62-year-old gentleman with no past medical history except allergic disorder who presents to the hospital with left knee pain following a mechanical fall directly on to the left hip. He had a hard time bearing weight on the lower extremities and came to the hospital for evaluation and management. Initial CT of hip showed left subcapital fracture of femur. The patient was admitted to Medical/Surgical unit for further evaluation and management, possible surgical approach. Cardiology consultation was made at request of Dr. Sparks to perform preoperative cardiac clearance. The patient does not have any history of coronary artery disease, congestive heart failure or cardiac arrhythmias. He denies any risk factors for coronary artery disease. He claims that prior to this event, he was capable of tolerating work load of more than 4 METS, with having no limitations from the cardiac standpoint. PAST MEDICAL HISTORY: Allergic disorder. PAST SURGICAL HISTORY: None. MEDICATIONS: Cephalexin 500 mg three times a day, ciprofloxacin 500 mg twice a day and Flomax 0.4 mg daily. ALLERGIES: No known drug allergies. FAMILY HISTORY: No premature coronary artery disease in first-degree relatives. SOCIAL HISTORY: Denies tobacco, alcohol, or illicit drug use. REVIEW OF SYSTEMS: A 12-system review done essentially negative except what was mentioned in the history of present illness. PHYSICAL EXAMINATION: GENERAL: The patient is a very unfortunate 62-year-old gentleman, in no apparent respiratory distress. Alert and oriented x4. VITAL SIGNS: Blood pressure at the time of arrival to the hospital 124/72, respirations 18, pulse of 85, O2 saturation 95% on room air and temperature 98.3 degrees Fahrenheit. HEENT: Atraumatic and normocephalic. ENT, pupils are equal, round, and reactive to light and accommodation. Extraocular muscles intact. NECK: JVP less than 5 cm. No carotid bruit. Carotid upstrokes 2+ bilaterally. CARDIOVASCULAR: Normal S1 and S2. Regular rate and rhythm. No murmurs, gallops, or rubs. PMI is at fourth intercostal space in the midclavicular line. LUNGS: Clear to auscultation bilaterally. ABDOMEN: Soft, nontender, and nondistended. No hepatosplenomegaly. Positive bowel sounds. EXTREMITIES: No evidence of edema, clubbing, or cyanosis. LABORATORY AND DIAGNOSTIC DATA: Chest x-ray showed no acute cardiopulmonary disease. A 12-lead electrocardiogram not available. WBC 9.3, hemoglobin 14.2, hematocrit 40.1 and platelet count is 292. Sodium is 139, potassium is 4.1, chloride 104, bicarbonate 28, BUN of 23, creatinine 1.2 and glucose is 117. Calcium is 9.6. INR is 0.9. ASSESSMENT AND PLAN: The patient is a very unfortunate 62-year-old gentleman, seen in Cardiology consultation at the request of Dr. Sparks. The patient is asymptomatic from the cardiac standpoint. He tolerates activities more than 4 METS. He does not have any risk factors for coronary artery disease. The patient is cleared for the possible intermediate risk of procedure with the risk of coronary artery events, perioperatively estimated to be less than 1%. I would like to obtain 12-lead electrocardiogram for preoperative purposes. I would like to thank, Dr. Sparks, for the courtesy of this consultation. Yon Davis M.D. DR: LATOYA JOB#: [id number] CC:
--- NOTE | 2018-01-17 20:00 | Operative Note - Dictated ---
DATE OF OPERATION: 01/17/2018 NOTE: "POOR AUDIO QUALITY" PREOPERATIVE DIAGNOSIS: Left femoral neck fracture. POSTOPERATIVE DIAGNOSIS: Left femoral neck fracture. PROCEDURE: Closed reduction and percutaneous pinning, left femoral neck fracture. SURGEON: Sergey Pabon M.D. ANESTHESIA: Spinal. INDICATION FOR PROCEDURE: The patient is a pleasant gentleman, who sustained a mechanical fall. He was diagnosed with left nondisplaced femoral neck fracture. He was indicated for operative fixation. Risks, limitations, expectations, and complications of the procedure were discussed in detail including avascular necrosis, failure of hardware, need for conversion to total hip arthroplasty, risk of anesthesia, medical complications, DVT, PE, and mortality risks. All questions were addressed. DESCRIPTION OF PROCEDURE: After informed consent was obtained, the patient was brought to the operating room. We placed the patient under spinal anesthesia. Kruse catheter was placed. Left hip was prepped and draped in sterile manner. Time-out was performed. A standard lateral skin incision was then made. Three guidewires were placed in inverted-triangle fashion. there was good spread from the anterior to posterior. Once that was done, 7.3 partially threaded cannulated screws were then placed with good fixation. AP and lateral imaging showed that the implants were within the bone the articular surface. The guidewires were removed. The wound was copiously irrigated. Skin was closed with #1 Vicryl suture, 2-0 Vicryl suture, and 3-0 Monocryl sutures. ESTIMATED BLOOD LOSS: None. COMPLICATIONS: None. SPECIMENS: None. IMPLANTS: Include three partially threaded hip screws. Sergey Pabon M.D. DR: Mj JOB#: [id number] CC:
[2018-01-17] MEDS: Tamsulosin 0.4mg cap ORAL SCH (22:39)
[2018-01-18] VITALS: BP 151/87
--- NOTE | 2018-01-18 01:45 | Consultation ---
DATE OF CONSULTATION: 01/17/2018 UROLOGY CONSULTATION CONSULTING PHYSICIAN: Will Love M.D. ATTENDING PHYSICIAN: Dr. Mo Sparks. CHIEF COMPLAINT/HISTORY OF PRESENT ILLNESS: I was asked by Dr. Sparks to evaluate this very pleasant 62-year-old gentleman regarding history of BPH, status post TURP, and a small bladder stone in the setting of imaging for a hip fracture. Briefly, the patient has a history of BPH and underwent TURP at [facility] approximately 3 years ago. He is maintained on Flomax 0.4 mg at baseline. He appears to be doing well after his urologic surgery, but presented to the hospital after tripping and falling over his left hip. Unfortunately, this resulted in a left hip fracture and he was admitted for management of the same. The patient had imaging done revealing a 9 mm stone in the bladder incidentally as a result of workup for his pelvic fracture, he has since had ORIF of the same. PAST MEDICAL HISTORY: 1. BPH. 2. Left hip fracture. PAST SURGICAL HISTORY: 1. TURP approximately 3 years ago. 2. ORIF, left hip fracture during this hospitalization. MEDICATIONS: Please see the chart for current medications administration details. Briefly, the patient is receiving cefepime for antibiotic coverage. He is not receiving Flomax here in the hospital. ALLERGIES: No known drug allergies. SOCIAL HISTORY: Unremarkable for tobacco, alcohol, or drug use. FAMILY HISTORY: Noncontributory. REVIEW OF SYSTEMS: A 14-system review of systems was essentially unremarkable outside was described above. PHYSICAL EXAMINATION: GENERAL: The patient is an older gentleman, awake, alert, oriented x4, pleasant, in no obvious distress. HEENT: NC/AT. EOMI. NECK: Supple. Full range of motion. Oropharynx clear. CHEST: Within normal limits. ABDOMEN: Soft, nontender, and nondistended. EXTREMITIES: Warm and well perfused. No cyanosis, clubbing, or edema. BACK: No CVA tenderness to percussion. NEUROLOGIC: Grossly nonfocal. GENITOURINARY: Reveals a circumcised male phallus with a Kruse catheter in place with clear yellow urine output. There are bilateral descended testes and cord structures. No masses or tenderness to palpation. LABORATORY DATA: White blood cell count 9.3, hematocrit 37.6, and platelets 227,000. PT 10.2, INR 1.0, and PTT 24. Sodium 138, potassium 4.0, chloride 104, bicarbonate 29, BUN 10, creatinine 0.9, glucose 135, and calcium 8.9. PSA 16.4. Urinalysis, specific gravity 1.015, pH 6.0. Dip test notable for 2+ protein, 1+ ketones, 4+ occult blood, and 3+ leukocyte esterase. Microanalysis with 15 to 20 red blood cells per high-power field, too numerous to count white blood cells per high-power field, and moderate bacteria seen. Urine culture with gram-negative bacillus. DIAGNOSTIC IMAGING: Hip CT with left femoral subcapital fracture. There is an incidental finding of a 9 millimeter bladder calculus. ASSESSMENT AND PLAN: In summary, the patient is a 62-year-old gentleman with a history of benign prostatic hypertrophy, status post transurethral resection of the prostate, maintained on Flomax with the same. He also has had apparent previous episodes of urinary tract infection. He presents to the hospital after a trip and fall resulting in a left hip fracture. Imaging for the same revealed an incidental 9 millimeter bladder stone and laboratory data revealed evidence of urinary tract infection again. The patient is receiving cefepime for antibiotic coverage. Physical exam reveals a Kruse catheter in place with clear yellow urine output. I discussed these findings today with the patient at the bedside. We will continue him on cefepime and adjust his antibiotics as culture results warrant. Additionally, I will start him on Flomax 0.4 milligrams by mouth at bedtime per his regular regimen. His catheter can be removed when he is mobile. As far as the bladder stone, it can be addressed as an outpatient with cystoscopy and laser litholapaxy done once he has recovered from his hip fracture. The patient verbalized understanding of the same. Thank you for allowing me to participate in the care of this nice gentleman. Please do not hesitate to contact me for any questions that you may further have regarding his care. I will see him with you as needed. Will Love M.D. DR: MAGDY JOB#: [id number] CC:
[2018-01-18] MEDS: Norco 5mg/325mg tab ORAL PRN ×2 (02:33→11:41)
[2018-01-18 04:00] VITALS: BP 118/73
[2018-01-18 06:38] LABS: BASOPHILS % (AUTO) 0.6 % (0.0-2.0); EOSINOPHILS % (AUTO) 0.3 % (0.0-3.0); HEMATOCRIT 37.3 % (42.0-52.0); HEMOGLOBIN 13.2 G/DL (14.2-18.0); LYMPHOCYTES % (AUTO) 7.4 % (20.0-45.0); MEAN CORPUSCULAR VOLUME 89 FL (80-99); MONOCYTES % (AUTO) 12.3 % (1.0-10.0); NEUTROPHILS % (AUTO) 79.5 % (45.0-75.0); PLATELET COUNT 201 K/UL (150-450); RED BLOOD COUNT 4.17 M/UL (4.70-6.10); RED CELL DISTRIBUTION WIDTH 10.4 % (11.6-14.8); WHITE BLOOD COUNT 11.1 K/UL (4.8-10.8)
[2018-01-18 06:44] LABS: ANION GAP 5 mmol/L (5-15); BLOOD UREA NITROGEN 8 mg/dL (7-18); CARBON DIOXIDE 30 MMOL/L (21-32); CHLORIDE 101 MMOL/L (98-107); SODIUM 136 MMOL/L (136-145)
[2018-01-18 08:00] VITALS: BP 112/66
[2018-01-18] MEDS: Morphine Sulfate 2mg/ml Inj IVP PRN ×3 (08:42→18:06)
[2018-01-18] MEDS: Cefepime HCl 1 GM in D5W 55 ML IVPB SCH ×2 (08:42→21:57)
[2018-01-18] MEDS: Heparin 5000 units/ml inj SUBQ SCH ×2 (08:46→17:12)
--- NOTE | 2018-01-18 09:15 | Diagnostic Imaging Report ---
Indication: Left hip fracture; intraoperative imaging Technique: Intraoperative images Comparison: 01/15/2018 Findings: Intraoperative images document repair of previously demonstrated left hip fracture using 3 surgical nails. Impression: Intraoperative imaging, as described
[2018-01-18 12:00] VITALS: BP 132/80
[2018-01-18] MEDS: D5 1/2NS w/KCl 20mEq 1,000 ML IV SCH (12:28)
--- NOTE | 2018-01-18 13:01 | General Progress Note ---
Assessment/Plan Problem List: (1) UTI (urinary tract infection) ICD Codes: N39.0 - Urinary tract infection, site not specified SNOMED: 47409863 (2) Fracture of left hip ICD Codes: S72.002A - Fracture of unspecified part of neck of left femur, initial encounter for closed fracture SNOMED: 716420861 (3) BPH with obstruction/lower urinary tract symptoms ICD Codes: N40.1 - Enlarged prostate with lower urinary tract symptoms SNOMED: 811978832 Status: stable, progressing Assessment/Plan abx pain control pending sx cbc bmp am dc plan snf Subjective Constitutional: Reports: weakness Allergies: Coded Allergies: No Known Allergies (Unverified , 11/21/13) All Systems: reviewed and negative except above Subjective sl gen pain s/p hip sx Objective Last 24 Hour Vital Signs Date Time Temp Pulse Resp B/P (MAP) Pulse Ox O2 Delivery O2 Flow Rate FiO2 01/18/18 12:00 99.3 85 20 132/80 (97) 98 99.3 01/18/18 08:00 98.8 94 20 112/66 (81) 98 98.8 01/18/18 07:51 Room Air 01/18/18 04:00 99.0 90 20 118/73 (88) 95 99.0 01/18/18 00:00 99.7 74 17 151/87 (108) 97 99.7 01/17/18 21:00 Room Air 01/17/18 20:00 98.0 53 18 135/86 (102) 98 98.0 01/17/18 19:25 97.6 52 16 127/77 100 Nasal Cannula 3 97.6 01/17/18 19:20 52 14 129/76 100 Nasal Cannula 3 01/17/18 19:15 51 15 133/81 100 Nasal Cannula 3 01/17/18 19:00 51 14 130/76 100 Nasal Cannula 3 01/17/18 18:52 209.8 56 20 99 01/17/18 18:50 52 15 121/77 100 Nasal Cannula 3 01/17/18 18:45 50 14 113/83 100 Simple Mask 6 01/17/18 18:39 98.9 53 20 120/74 100 Simple Mask 6 98.9 01/17/18 16:00 98.2 65 20 125/81 (96) 100 98.2 Intake and Output 01/17/18 01/18/18 19:00 07:00 Intake Total 1325 ml 2005 ml Output Total 120 ml 1500 ml Balance 1205 ml 505 ml IV Total 1325 ml 1205 ml Other 800 ml Output Urine Total 100 ml 1500 ml Estimated Blood Loss 20 ml Laboratory Tests 01/18/18 05:30: White Blood Count 11.1H, Red Blood Count 4.17L, Hemoglobin 13.2L, Hematocrit 37.3L, Mean Corpuscular Volume 89, Mean Corpuscular Hemoglobin 31.6H, Mean Corpuscular Hemoglobin Concent 35.4, Red Cell Distribution Width 10.4L, Platelet Count 201, Mean Platelet Volume 5.7L, Neutrophils (%) (Auto) 79.5H, Lymphocytes (%) (Auto) 7.4L, Monocytes (%) (Auto) 12.3H, Eosinophils (%) (Auto) 0.3, Basophils (%) (Auto) 0.6, Sodium Level 136, Potassium Level 4.0, Chloride Level 101, Carbon Dioxide Level 30, Anion Gap 5, Blood Urea Nitrogen 8, Creatinine 1.0, Estimat Glomerular Filtration Rate > 60, Glucose Level 132H, Calcium Level 9.0 Height (Feet): 6 Height (Inches): 0.00 Weight (Pounds): 187 General Appearance: lethargic EENT: normal ENT inspection Neck: normal alignment Cardiovascular: normal peripheral pulses, normal rate, regular rhythm Respiratory/Chest: chest wall non-tender, lungs clear, normal breath sounds Abdomen: normal bowel sounds, non tender, soft Extremities: normal inspection Edema: no edema noted Arm (L), no edema noted Arm (R), no edema noted Leg (L), no edema noted Leg (R), no edema noted Pedal (L), no edema noted Pedal (R), no edema noted Generalized Neurologic: responsive, motor weakness Skin: normal pigmentation, warm/dry Mo Sparks DO Jan 18, 2018 13:01
--- NOTE | 2018-01-18 13:49 | Infectious Diseases Prog Note ---
Assessment/Plan Assessment/Plan Abx: Ceftriaxone x1 01/16 Assessment: Left hip s/p fall- with Fx SP ORIF Afebrile, no leukocytosis UTI (dysuria)- r/o obstruction/stone -u/a wbc Tnct, nit neg, leuk +3; ucx GNR -recurrent UTI- 3 courses of Cipro x10 d since August; last one was recently and urine cx grew P.mirabilis per patient L ankle lateral malleolus swelling/pain- r/o fracture BPH Plan: Ceftriaxone #1/7 Will likely D/C on Levofloxacin -D/C Cefepime #2 -f/u cx -Monitor CBC/CMP, temperatures -f/u Xray -aspiration precautions -pain control - Need f/u with urology as likely has infected stone. Thank you for this consult we will continue to follow the patient with you. Subjective Allergies: Coded Allergies: No Known Allergies (Unverified , 11/21/13) Subjective Patient remains afebrile Pain controlled Left hip Sx last night Objective Vital Signs Last 24 Hour Vital Signs Date Time Temp Pulse Resp B/P (MAP) Pulse Ox O2 Delivery O2 Flow Rate FiO2 01/18/18 12:00 99.3 85 20 132/80 (97) 98 99.3 01/18/18 08:00 98.8 94 20 112/66 (81) 98 98.8 01/18/18 07:51 Room Air 01/18/18 04:00 99.0 90 20 118/73 (88) 95 99.0 01/18/18 00:00 99.7 74 17 151/87 (108) 97 99.7 01/17/18 21:00 Room Air 01/17/18 20:00 98.0 53 18 135/86 (102) 98 98.0 01/17/18 19:25 97.6 52 16 127/77 100 Nasal Cannula 3 97.6 01/17/18 19:20 52 14 129/76 100 Nasal Cannula 3 01/17/18 19:15 51 15 133/81 100 Nasal Cannula 3 01/17/18 19:00 51 14 130/76 100 Nasal Cannula 3 01/17/18 18:52 209.8 56 20 99 01/17/18 18:50 52 15 121/77 100 Nasal Cannula 3 01/17/18 18:45 50 14 113/83 100 Simple Mask 6 01/17/18 18:39 98.9 53 20 120/74 100 Simple Mask 6 98.9 01/17/18 16:00 98.2 65 20 125/81 (96) 100 98.2 Height (Feet): 6 Height (Inches): 0.00 Weight (Pounds): 187 Objective General Appearance: NAD, Laying in bed Head: normocephalic, atraumatic, MMM, EOMI Respiratory: chest non-tender, lungs clear, normal breath sounds Cardiovascular : regular rate, rhythm, no murmur Gastrointestinal: normal bowel sounds, non tender, no mass, no organomegaly, no bruit, non-distended Musculoskeletal: back normal, tender - Over left hip/thigh. Laboratory Tests Test 01/18/18 05:30 White Blood Count 11.1 K/UL (4.8-10.8) H Red Blood Count 4.17 M/UL (4.70-6.10) L Hemoglobin 13.2 G/DL (14.2-18.0) L Hematocrit 37.3 % (42.0-52.0) L Mean Corpuscular Volume 89 FL (80-99) Mean Corpuscular Hemoglobin 31.6 PG (27.0-31.0) H Mean Corpuscular Hemoglobin Concent 35.4 G/DL (32.0-36.0) Red Cell Distribution Width 10.4 % (11.6-14.8) L Platelet Count 201 K/UL (150-450) Mean Platelet Volume 5.7 FL (6.5-10.1) L Neutrophils (%) (Auto) 79.5 % (45.0-75.0) H Lymphocytes (%) (Auto) 7.4 % (20.0-45.0) L Monocytes (%) (Auto) 12.3 % (1.0-10.0) H Eosinophils (%) (Auto) 0.3 % (0.0-3.0) Basophils (%) (Auto) 0.6 % (0.0-2.0) Sodium Level 136 MMOL/L (136-145) Potassium Level 4.0 MMOL/L (3.5-5.1) Chloride Level 101 MMOL/L (98-107) Carbon Dioxide Level 30 MMOL/L (21-32) Anion Gap 5 mmol/L (5-15) Blood Urea Nitrogen 8 mg/dL (7-18) Creatinine 1.0 MG/DL (0.55-1.30) Estimat Glomerular Filtration Rate > 60 mL/min (>60) Glucose Level 132 MG/DL (74-106) H Calcium Level 9.0 MG/DL (8.5-10.1) Current Medications Medications (Trade) Dose Ordered Sig/Aubrey Route PRN Reason Start Time Stop Time Status Last Admin Dose Admin Acetaminophen/ Hydrocodone Bitart ([place] 5/325) 1 tab Q6H PRN ORAL Moderate Pain (Pain Scale 4-6) 01/16/18 18:45 01/23/18 18:44 01/18/18 11:41 Cefepime HCl 1 gm/ Dextrose 55 ml @ 110 mls/hr EVERY 12 HOURS IVPB 01/16/18 16:30 01/23/18 16:29 01/18/18 08:42 Dextrose/ Electrolytes 1,000 ml @ 75 mls/hr [id number] IV 01/17/18 18:00 02/16/18 17:59 01/18/18 12:28 Heparin Sodium (Porcine) (Heparin 5000 units/ml) 5,000 units BID SUBQ 01/16/18 09:00 02/15/18 08:59 01/18/18 08:46 Morphine Sulfate (Morphine Sulfate) 2 mg Q4H PRN IVP Severe Pain (Pain Scale 7-10) 01/16/18 19:00 01/23/18 01:44 01/18/18 08:42 Tamsulosin HCl (Flomax) 0.4 mg BEDTIME ORAL 01/17/18 22:30 02/16/18 22:29 01/17/18 22:39 Buck Chinchilla MD Jan 18, 2018 13:49
[2018-01-18] MEDS ORDERED: cefTRIAXone 1 GM in D5W 55 ML IVPB SCH (15:00)
--- NOTE | 2018-01-18 15:51 | Cardiology Report ---
APPROVED REPORT EKG Measurement Heart [id number] Sinus bradycardia Otherwise normal ECG
[2018-01-18 16:10] VITALS: BP 139/75
[2018-01-18 20:00] VITALS: BP 146/81
[2018-01-18] MEDS: Tamsulosin 0.4mg cap ORAL SCH (20:43)
[2018-01-19] VITALS: BP 112/69
[2018-01-19 04:00] VITALS: BP 125/72
[2018-01-19] MEDS: D5 1/2NS w/KCl 20mEq 1,000 ML IV SCH (04:54)
[2018-01-19] MEDS: Cefepime HCl 1 GM in D5W 55 ML IVPB SCH ×2 (05:00→13:48)
[2018-01-19 07:36] LABS: BASOPHILS % (AUTO) 0.6 % (0.0-2.0); EOSINOPHILS % (AUTO) 2.6 % (0.0-3.0); HEMATOCRIT 36.7 % (42.0-52.0); LYMPHOCYTES % (AUTO) 9.5 % (20.0-45.0); MEAN CORPUSCULAR VOLUME 88 FL (80-99); MONOCYTES % (AUTO) 12.1 % (1.0-10.0); NEUTROPHILS % (AUTO) 75.2 % (45.0-75.0); PLATELET COUNT 194 K/UL (150-450); RED BLOOD COUNT 4.18 M/UL (4.70-6.10); RED CELL DISTRIBUTION WIDTH 10.1 % (11.6-14.8)
[2018-01-19 07:49] LABS: ANION GAP 8 mmol/L (5-15); BLOOD UREA NITROGEN 9 mg/dL (7-18); CALCIUM 9.1 MG/DL (8.5-10.1); CARBON DIOXIDE 27 MMOL/L (21-32); CHLORIDE 105 MMOL/L (98-107); CREATININE 0.8 MG/DL (0.55-1.30); POTASSIUM 3.6 MMOL/L (3.5-5.1); SODIUM 140 MMOL/L (136-145)
[2018-01-19 08:00] VITALS: BP 124/74
--- NOTE | 2018-01-19 08:08 | Infectious Diseases Prog Note ---
Assessment/Plan Assessment/Plan Abx: Ceftriaxone x1 01/16 Assessment: Fever - Likely Post Op vs Urinary source as also had mild PO leukocytosis - Now afebrile Leukocytosis - resolved Left hip s/p fall- with Fx SP ORIF Afebrile and no leukocytosis initially UTI (dysuria)- r/o obstruction/stone -u/a wbc Tnct, nit neg, leuk +3; ucx GNR -recurrent UTI- 3 courses of Cipro x10 d since August; last one was recently and urine cx grew P.mirabilis per patient L ankle lateral malleolus swelling/pain- r/o fracture BPH Plan: Cefepime #4/ - Will likely D/C on Levofloxacin -f/u cx -Monitor CBC/CMP, temperatures -f/u Xray -aspiration precautions -pain control - Need f/u with urology as likely has infected stone. Thank you for this consult we will continue to follow the patient with you. Subjective Allergies: Coded Allergies: No Known Allergies (Unverified , 11/21/13) Subjective Had fever last night - Now resolved Pain controlled Objective Vital Signs Last 24 Hour Vital Signs Date Time Temp Pulse Resp B/P (MAP) Pulse Ox O2 Delivery O2 Flow Rate FiO2 01/19/18 04:00 97.7 73 19 125/72 (89) 96 97.7 01/19/18 00:00 97.7 73 19 112/69 (83) 97 97.7 01/18/18 21:13 98.6 01/18/18 20:43 101.5 01/18/18 20:00 101.5 97 19 146/81 (102) 97 101.5 01/18/18 18:00 Room Air 01/18/18 16:17 98.9 98.9 01/18/18 16:10 100.0 84 20 139/75 (96) 98 100.0 01/18/18 12:00 99.3 85 20 132/80 (97) 98 99.3 Height (Feet): 6 Height (Inches): 0.00 Weight (Pounds): 187 Objective General Appearance: NAD, Laying in bed, Afebrile Head: NCAT, MMM, EOMI Respiratory: chest non-tender, lungs clear, normal breath sounds Cardiovascular : regular rate, rhythm, no murmur Gastrointestinal: Soft , NT, ND Musculoskeletal: back normal, tender - Over left hip/thigh. Laboratory Tests Test 01/19/18 06:25 White Blood Count 10.0 K/UL (4.8-10.8) Red Blood Count 4.18 M/UL (4.70-6.10) L Hemoglobin 13.0 G/DL (14.2-18.0) L Hematocrit 36.7 % (42.0-52.0) L Mean Corpuscular Volume 88 FL (80-99) Mean Corpuscular Hemoglobin 31.2 PG (27.0-31.0) H Mean Corpuscular Hemoglobin Concent 35.5 G/DL (32.0-36.0) Red Cell Distribution Width 10.1 % (11.6-14.8) L Platelet Count 194 K/UL (150-450) Mean Platelet Volume 5.7 FL (6.5-10.1) L Neutrophils (%) (Auto) 75.2 % (45.0-75.0) H Lymphocytes (%) (Auto) 9.5 % (20.0-45.0) L Monocytes (%) (Auto) 12.1 % (1.0-10.0) H Eosinophils (%) (Auto) 2.6 % (0.0-3.0) Basophils (%) (Auto) 0.6 % (0.0-2.0) Sodium Level 140 MMOL/L (136-145) Potassium Level 3.6 MMOL/L (3.5-5.1) Chloride Level 105 MMOL/L (98-107) Carbon Dioxide Level 27 MMOL/L (21-32) Anion Gap 8 mmol/L (5-15) Blood Urea Nitrogen 9 mg/dL (7-18) Creatinine 0.8 MG/DL (0.55-1.30) Estimat Glomerular Filtration Rate > 60 mL/min (>60) Glucose Level 109 MG/DL (74-106) H Calcium Level 9.1 MG/DL (8.5-10.1) Current Medications Medications (Trade) Dose Ordered Sig/Aubrey Route PRN Reason Start Time Stop Time Status Last Admin Dose Admin Acetaminophen (Tylenol) 650 mg Q4H PRN ORAL Mild Pain/Temp > 101 01/18/18 20:30 02/17/18 20:29 01/18/18 20:43 Acetaminophen/ Hydrocodone Bitart ([place] 5/325) 1 tab Q6H PRN ORAL Moderate Pain (Pain Scale 4-6) 01/16/18 18:45 01/23/18 18:44 01/18/18 11:41 Cefepime HCl 1 gm/ Dextrose 55 ml @ 110 mls/hr EVERY 8 HOURS IVPB 01/18/18 22:00 01/25/18 21:59 01/19/18 05:00 Dextrose/ Electrolytes 1,000 ml @ 75 mls/hr [id number] IV 01/17/18 18:00 02/16/18 17:59 01/19/18 04:54 Heparin Sodium (Porcine) (Heparin 5000 units/ml) 5,000 units BID SUBQ 01/16/18 09:00 02/15/18 08:59 01/18/18 17:12 Morphine Sulfate (Morphine Sulfate) 2 mg Q4H PRN IVP Severe Pain (Pain Scale 7-10) 01/16/18 19:00 01/23/18 01:44 01/18/18 18:06 Tamsulosin HCl (Flomax) 0.4 mg BEDTIME ORAL 01/17/18 22:30 02/16/18 22:29 01/18/18 20:43 Buck Chinchilla MD Jan 19, 2018 08:08
[2018-01-19] MEDS: Heparin 5000 units/ml inj SUBQ SCH (08:14)
[2018-01-19] MEDS: Norco 5mg/325mg tab ORAL PRN (10:06)
[2018-01-19 11:42] VITALS: BP 113/67
--- NOTE | 2018-01-19 12:28 | General Progress Note ---
Assessment/Plan Problem List: (1) UTI (urinary tract infection) ICD Codes: N39.0 - Urinary tract infection, site not specified SNOMED: 13985190 (2) Fracture of left hip ICD Codes: S72.002A - Fracture of unspecified part of neck of left femur, initial encounter for closed fracture SNOMED: 873559764 (3) BPH with obstruction/lower urinary tract symptoms ICD Codes: N40.1 - Enlarged prostate with lower urinary tract symptoms SNOMED: 998957360 Status: stable, progressing Assessment/Plan abx pain control pending sx cbc bmp am dc if clear by ortho and id Subjective Constitutional: Reports: weakness Allergies: Coded Allergies: No Known Allergies (Unverified , 11/21/13) All Systems: reviewed and negative except above Subjective sl gen pain s/p hip sx Objective Last 24 Hour Vital Signs Date Time Temp Pulse Resp B/P (MAP) Pulse Ox O2 Delivery O2 Flow Rate FiO2 01/19/18 11:42 98.7 83 19 113/67 (82) 97 98.7 01/19/18 10:36 97.7 01/19/18 10:06 97.7 01/19/18 08:45 Room Air 01/19/18 08:00 97.7 83 18 124/74 (91) 95 97.7 01/19/18 04:00 97.7 73 19 125/72 (89) 96 97.7 01/19/18 00:00 97.7 73 19 112/69 (83) 97 97.7 01/18/18 21:13 98.6 01/18/18 20:43 101.5 01/18/18 20:00 101.5 97 19 146/81 (102) 97 101.5 01/18/18 18:00 Room Air 01/18/18 16:17 98.9 98.9 01/18/18 16:10 100.0 84 20 139/75 (96) 98 100.0 Intake and Output 01/18/18 01/19/18 19:00 07:00 Intake Total 1797 ml 1430 ml Output Total 1400 ml 3100 ml Balance 397 ml -1670 ml Intake Oral 1000 ml IV Total 897 ml 430 ml Other 900 ml Output Urine Total 1400 ml 3100 ml # Voids 4 Laboratory Tests 01/19/18 06:25: White Blood Count 10.0, Red Blood Count 4.18L, Hemoglobin 13.0L, Hematocrit 36.7L, Mean Corpuscular Volume 88, Mean Corpuscular Hemoglobin 31.2H, Mean Corpuscular Hemoglobin Concent 35.5, Red Cell Distribution Width 10.1L, Platelet Count 194, Mean Platelet Volume 5.7L, Neutrophils (%) (Auto) 75.2H, Lymphocytes (%) (Auto) 9.5L, Monocytes (%) (Auto) 12.1H, Eosinophils (%) (Auto) 2.6, Basophils (%) (Auto) 0.6, Sodium Level 140, Potassium Level 3.6, Chloride Level 105, Carbon Dioxide Level 27, Anion Gap 8, Blood Urea Nitrogen 9, Creatinine 0.8, Estimat Glomerular Filtration Rate > 60, Glucose Level 109H, Calcium Level 9.1 Height (Feet): 6 Height (Inches): 0.00 Weight (Pounds): 187 General Appearance: lethargic EENT: normal ENT inspection Neck: normal alignment Cardiovascular: normal peripheral pulses, normal rate, regular rhythm Respiratory/Chest: chest wall non-tender, lungs clear, normal breath sounds Abdomen: normal bowel sounds, non tender, soft Extremities: normal inspection Edema: no edema noted Arm (L), no edema noted Arm (R), no edema noted Leg (L), no edema noted Leg (R), no edema noted Pedal (L), no edema noted Pedal (R), no edema noted Generalized Neurologic: motor weakness Skin: normal pigmentation, warm/dry Mo Sparks DO Jan 19, 2018 12:28
[2018-01-19] MEDS ORDERED: ACETAMINOPHEN325 M1 ORAL (13:01)
[2018-01-19] MEDS ORDERED: HEPARIN SO5000 UNIT2 SUBQ (13:02)
[2018-01-19] MEDS ORDERED: HYDROCODON-ACE1 EA15 ORAL (13:03)
[2018-01-19] MEDS ORDERED: CEFEPIME-D1 GM/50 ML IVPB (13:05)
--- NOTE | 2018-01-19 15:29 | 48 Hour Post Anesthesia Eval ---
Post Anesthesia Evaluation Procedure: Percutaneous pinning of L femoral neck Fx. Date of Evaluation: Jan 19, 2018 Time of Evaluation: 15:27 Blood Pressure Systolic: 135 0: 74 Pulse Rate: 76 Respiratory Rate: 20 Temperature (Fahrenheit): 97.6 O2 Sat by Pulse Oximetry: 98 Airway: patent Nausea: No Vomiting: No Pain Intensity: 3 Hydration Status: adequate Cardiopulmonary Status: stable Mental Status/LOC: patient returned to baseline Follow-up Care/Observations: n/a Post-Anesthesia Complications: none Follow-up care needed: N/A Herbie Hussein MD Jan 19, 2018 15:29
[2018-01-19 15:56] VITALS: BP 128/78
--- NOTE | 2018-01-19 15:59 | Diagnostic Imaging Report ---
APPROVED REPORT CPT Code: 72982 BILATERAL: Imaging reveals a patent deep venous system bilaterally. There is no evidence of thrombus within the femoral, popliteal or tibial segments. The greater saphenous veins are also within normal limits. Doppler indicates normal spontaneous flow within these segments.
[2018-01-19] MEDS ORDERED: Tubing IV Secondary IV ONE (17:44)
[2018-01-19] MEDS ORDERED: NS 275ml ONE (17:44)
--- NOTE | 2018-01-20 12:32 | Discharge Summary ---
Discharge Summary Discharge Summary _ DATE OF ADMISSION: 01/15/2018 DATE OF DISCHARGE: 01/19/2018 CONSULTANTS: Dr. Sergey Davis BRIEF HOSPITAL COURSE: Patient is a 62-year-old male, who lives at home, apparently slipped and fell over onto his left hip, sustaining a lot of pain. Since then he had hard time bearing weight. Pain was 9 out of 10 and worse with movement and palpation. He complained of pain to the left hip and thigh area. He denied head trauma. There was no loss of consciousness. He has medical history significant for BPH. On evaluation at ED, he had stable vital signs. X-ray of the left hip was positive for left femoral neck fracture. CT of the left hip was positive for left femoral subcapital fracture and an incidental finding of a 9 mm bladder calculus. Chest x-ray was without acute process. Blood work was stable. Urine showed 3+ leukocyte esterase, 15-20 RBC, too many to count WBC. He was then admitted for evaluation of left hip pain secondary to left hip fracture. Orthopedic consultation was obtained. Left hip examination showed pain with internal and external rotation. Positive heel strike. Neurovascular was intact. He was medically optimized for surgery. He was seen by service agent for preop clearance. Patient was asymptomatic from cardiac standpoint and was able to tolerate activities more than 4 METS. Venous duplex was negative. He was cleared for surgery. ID was consulted for evaluation of pyuria and concern for UTI. He had recurrent UTI and had been on 3 courses of ciprofloxacin for 10 days since August. He had a history of Proteus mirabilis in the urine per patient. He was started empirically on cefepime pending culture results. Renal ultrasound was negative for hydronephrosis. Post void bladder volume of 162. There was evidence of prostatomegaly and evidence of prior TURP. Urologist was consulted. He agreed to continuation of antibiotic . He recommended outpatient cystoscopy for evaluation of bladder stone. He was continued on Flomax. On 01/17/2018, he underwent closed reduction and percutaneous pinning of the left femoral neck fracture by Dr. Pabon. He tolerated procedure well. Postoperatively he was given pain management. He was placed on SCDs for DVT prophylaxis and was encouraged use of incentive spirometry. He underwent physical and occupational therapy. He had fever postop. He was continued on cefepime. He eventually defervesced. Urine culture showed growth of Proteus mirabilis. He was ambulating well with physical therapy. Kruse catheter was discontinued. He was voiding freely. He was eventually discharged to a SNF to continue rehabilitation. FINAL DIAGNOSES: Acute left femoral neck fracture secondary to fall Status post close reduction with percutaneous pinning of the left femoral neck fracture Proteus UTI Post-op fever Bladder calculus BPH DISPOSITION: Patient was discharged to Rehabilitation on . DISCHARGE MEDICATIONS: Refer to Discharge Medication List. I have been assigned to dictate discharge summary on this account, and I was not involved in the patient's management. Vickie Rico NP Jan 20, 2018 12:32
== END 2018-01-19 17:45 | DRG 481 ==
LOC: EMR 22:57 → 4E 23:57 → EDBEDREQ 01-16 00:40
PROC: 0QS734Z Reposition Left Upper Femur with Internal Fixation Device, Percutaneous Approach (ICD-10-PCS; principal; 2018-01-17 14:45)
DX: S72.092A Other fracture of head and neck of left femur, initial encounter for closed fracture (principal); N39.0 Urinary tract infection, site not specified; W17.89XA Other fall from one level to another, initial encounter; Y93.9 Activity, unspecified; Y92.9 Unspecified place or not applicable; N40.0 Benign prostatic hyperplasia without lower urinary tract symptoms; R50.82 Postprocedural fever; N21.0 Calculus in bladder; B96.4 Proteus (mirabilis) (morganii) as the cause of diseases classified elsewhere
CPT/HCPCS: 36415; 71045; 73502; 76001; 76770; 80048; 81001; 84153; 84154; 85025; 85610; 85730; 87086; 87181; 93005; 93970; 94003; 94150; 96361; 96374; 96375; 99285; J2250; J2405

== ENCOUNTER 2018-09-29 20:55 | Emergency (ER) | payer OTHER ==
[~2018-09-29] VITALS: Ht 182.9 cm; Wt 8.2 kg
[~2018-09-29 20:55] MED LIST changes: +ACETAMINOPHEN325 M1 ORAL; +CEFEPIME-D1 GM/50 ML IVPB; +HEPARIN SO5000 UNIT2 SUBQ; +HYDROCODON-ACE1 EA15 ORAL
[2018-09-29 21:05] VITALS: BP 127/83
--- NOTE | 2018-09-29 21:06 | NUR ---
ED Nurse Note: Patient arrived with complaints of lack of urine from smith post bladder stone surgery.
[2018-09-29] MEDS ORDERED: TERAZOSIN HCL1 MG ORAL (21:09)
[2018-09-29] MEDS ORDERED: SIMVASTATIN5 MG ORAL (21:09)
--- NOTE | 2018-09-29 21:36 | NUR ---
ED Nurse Note: PAtient is relaxing comfortably with no s/s of acute distress, at bedside.
--- NOTE | 2018-09-29 22:06 | NUR ---
ED Nurse Note: Irrigated smith catheter, line patent, some urine return after inputting 240cc. ERMD informed.
--- NOTE | 2018-09-29 23:00 | NUR ---
Will be seen by urologist before discharge(at this time urologist is with another patient in ER).
--- NOTE | 2018-09-29 23:07 | NUR ---
ED Nurse Note: Urologist at bedside.
--- NOTE | 2018-09-29 23:21 | NUR ---
ED Nurse Note: Leg bag changed at patients request. ERMD spoke with patient regarding discharge and follow-up instructions.
[2018-09-29 23:25] VITALS: BP 127/83
--- NOTE | 2018-09-29 23:25 | NUR ---
ED Nurse Note: Patient cleared for discharge, catheter changed by urology specialist. Patient verbalized understanding of discharge instructions. Patient ID band removed. Patient departed to personal vehicle accompanied by . Patient departed with all belongings.
--- NOTE | 2018-09-29 23:29 | Consultation ---
History of Present Illness General Date patient seen: September 29, 2018 Time patient seen: 23:27 Chief Complaint: Male Urogenital Problems Referring physician: Jarret Reason for Consultation: Catheter malfunction Present Illness HPI 63 yo male s/p TURP and recent bladder stone surgery at [facility] yesterday. Catheter was working until mid day today, all urine coming around smith. Patient not seeing any urine in bag. Allergies: Coded Allergies: No Known Allergies (Unverified , 11/21/13) Medication History Scheduled Cefepime Hcl/D5w (Cefepime-Dextrose 1 Gm/50 Ml), 1 GM IVPB Q8HR, (Reported) Cephalexin* (Keflex*), 500 MG ORAL TID Ciprofloxacin Hcl* (Ciprofloxacin Hcl*), 500 MG ORAL Q12H Heparin Sod (Porcine) (Heparin Sodium*), 5,000 UNITS SUBQ EVERY 12 HOURS, ( Reported) Simvastatin (Zocor), 5 MG ORAL BEDTIME, (Reported) Tamsulosin HCl (Flomax), 0.4 MG ORAL DAILY, (Reported) Terazosin Hcl* (Hytrin*), 5 MG ORAL BEDTIME, (Reported) Scheduled PRN Acetaminophen* (Acetaminophen 325MG Tablet*), 650 MG ORAL Q4H PRN for For Pain, (Reported) Hydrocodone/Acetaminophen 5-325* (Hydrocodone/Acetaminophen 5-325*), 1 TAB ORAL Q6H PRN for For Pain, (Reported) Patient History History Provided By: Patient, Medical Record Healthcare decision maker Resuscitation status Advanced Directive on File Past Medical/Surgical History Past Medical/Surgical History: (1) Acute urinary retention (2) UTI (urinary tract infection) Review of Systems All Other Systems: negative except mentioned in HPI Physical Exam General Appearance: WD/WN HEENT: normocephalic, atraumatic Neck: non-tender Breasts: no masses Cardiovascular/Chest: normal rate, regular rhythm Abdomen: non tender, soft Genitourinary/Rectal: normal genital exam, smith Last 24 Hour Vital Signs Date Time Temp Pulse Resp B/P (MAP) Pulse Ox O2 Delivery O2 Flow Rate FiO2 09/29/18 21:05 98.6 79 14 127/83 93 Room Air 09/29/18 21:02 98.6 83 14 93 Room Air Height (Feet): 6 Weight (Pounds): 18 Objective Narrative Under sterile conditions, 18 khmer smith catheter placed. Immediate return of 2 blood clots and yellow urine. Assessment/Plan Status: stable Assessment/Plan: Likely catheter dysfunction/clog vs. bladder spasms. Catheter changed, seems to be working. Patient told to keep smith for 1 week, agree with assessment. 1. home with smith to leg bag. Tristan Crenshaw M.D. September 29, 2018 23:29
--- NOTE | 2018-09-30 02:23 | Emergency Room Report ---
History of Present Illness General Chief Complaint: Male Urogenital Problems Source: Patient, Medical Record Present Illness HPI 63-year-old male presents ED for evaluation. He is here for evaluation of Smith catheter. States he had a bladder stone removal done at [facility] [place] yesterday and had a Smith catheter placed. States that starting today he noted that the Smith catheter was not draining and urine was coming around the urethral meatus. Denies pain. Denies fevers or chills. Denies flank pain. No other aggravating relieving factors. Denies any other associated symptoms Allergies: Coded Allergies: No Known Allergies (Unverified , 11/21/13) Patient History Past Medical History: none Past Surgical History: other - bladder stone Pertinent Family History: none Social History: Denies: smoking, alcohol use, drug use Immunizations: UTD Reviewed Nursing Documentation: PMH: Agreed; PSxH: Agreed Nursing Documentation-PMH Past Medical History: No History, Except For Hx Cardiac Problems: No - APPENDECTOMY, LEFT HIP SURGERY Hx Cancer: No Hx Gastrointestinal Problems: No Hx Neurological Problems: No Review of Systems All Other Systems: negative except mentioned in HPI Physical Exam Vital Signs Date Time Temp Pulse Resp B/P (MAP) Pulse Ox O2 Delivery O2 Flow Rate FiO2 09/29/18 21:02 98.6 83 14 93 Room Air 09/29/18 21:05 127/83 Sp02 EP Interpretation: reviewed, normal General Appearance: no apparent distress, alert, GCS 15, non-toxic Head: normocephalic, atraumatic Eyes: bilateral eye normal inspection, bilateral eye PERRL ENT: hearing grossly normal, normal pharynx, no angioedema, normal voice Neck: full range of motion, supple/symm/no masses Respiratory: chest non-tender, lungs clear, normal breath sounds, speaking full sentences Cardiovascular #1: regular rate, rhythm, no edema Cardiovascular #2: 2+ carotid (R), 2+ carotid (L), 2+ radial (R), 2+ radial (L) , 2+ dorsalis pedis (R), 2+ dorsalis pedis (L) Gastrointestinal: normal bowel sounds, non tender, soft, non-distended, no guarding, no rebound Rectal: deferred Genitourinary: normal inspection, no CVA tenderness, other - smith catheter in place Musculoskeletal: back normal, gait/station normal, normal range of motion, non- tender Neurologic: alert, oriented x3, responsive, motor strength/tone normal, sensory intact, speech normal Psychiatric: judgement/insight normal, memory normal, mood/affect normal, no suicidal/homicidal ideation Reflexes: 3+ bicep (R), 3+ bicep (L), 3+ tricep (R), 3+ tricep (L), 3+ knee (R) , 3+ knee (L) Skin: normal color, no rash, warm/dry, well hydrated Lymphatic: no adenopathy Medical Decision Making Diagnostic Impression: Primary Impression: Malfunction of Smith catheter Qualified Codes: T83.011A - Breakdown (mechanical) of indwelling urethral catheter, initial encounter ER Course Hospital Course 63-year-old M presents to ED complaining of urinary retention. has smith catheter in place Differential diagnoses include: obstruction, UTI, BPH Clinical course Patient placed on stretcher. After initial history. Physical exam revealed male in no acute distress. Patient documents urine spilling around urethral meatus. Smith does appear in place Dr. Crenshaw (Urology) at bedside to evaluate patient. He changed Smith catheter without complication. Appears to be flowing better now. Reassurance given to patient. Safe for discharge and close outpatient follow- up. Recommend close follow-up with urology at [facility] Diagnosis - malfunction of smith catheter Stable and discharged home with smith + leg bag. Instructed to followup with PMD/urologist. Return to ED if symptoms recur or worsen Last Vital Signs Date Time Temp Pulse Resp B/P (MAP) Pulse Ox O2 Delivery O2 Flow Rate FiO2 09/29/18 23:25 98.6 79 14 127/83 93 Room Air Status: improved Disposition: HOME, SELF-CARE Condition: Stable Referrals: Tristan Crenshaw M.D. Patient Instructions: Smith Catheter Care, Adult, [id number] Khang Dill MD September 30, 2018 02:23
== END 2018-09-29 23:25 | disposition home or self-care (01) ==
LOC: EMR 21:30
DX: T83.0 Mechanical complication of urinary catheter (principal); Z90.89 Acquired absence of other organs; X58.XXXA Exposure to other specified factors, initial encounter; Y92.9 Unspecified place or not applicable
CPT/HCPCS: 51702; 99282